=== PATIENT | male | born 1955 | race Caucasian/White ===

== ENCOUNTER 2021-03-08 09:54 | Day surgery (SDC) | payer MEDICARE ==
[~2021-03-08] VITALS: Ht 165.1 cm; Wt 81.8 kg
[2021-03-08 10:12] VITALS: BP 165/83
[2021-03-08] MEDS ORDERED: ATEN-169 PO (10:38)
[2021-03-08] MEDS ORDERED: FURO-149 PO (10:39)
[2021-03-08] MEDS ORDERED: LOSA100T57 PO (10:39)
[2021-03-08] MEDS ORDERED: POTA20PA40 PO (10:40)
[2021-03-08] MEDS ORDERED: BUDE10.2 INH (10:41)
[2021-03-08] MEDS ORDERED: ALBU8HFA PO (10:41)
[2021-03-08] MEDS ORDERED: fentaNYL/PF 50MCG/1 ML 2ML syringe ONE (10:48)
[2021-03-08] MEDS ORDERED: MIDAZolam 1 MG/ML 5ML VIAL ONE (10:48)
[2021-03-08 11:25] VITALS: BP 123/60
[2021-03-08 11:34] VITALS: BP 111/65
[2021-03-08 11:44] VITALS: BP 118/76
[2021-03-08 11:54] VITALS: BP 118/63
== END 2021-03-08 12:00 | disposition home or self-care (01) ==
LOC: GI LAB 09:54
PROVIDERS: ATTEND Internal Medicine Gastroenterology
DX: Z12.11 Encounter for screening for malignant neoplasm of colon (principal); D12.0 Benign neoplasm of cecum; D12.5 Benign neoplasm of sigmoid colon; D12.2 Benign neoplasm of ascending colon; K62.1 Rectal polyp; K57.30 Diverticulosis of large intestine without perforation or abscess without bleeding; K64.8 Other hemorrhoids; J44.9 Chronic obstructive pulmonary disease, unspecified; I10 Essential (primary) hypertension; Z91.09 Other allergy status, other than to drugs and biological substances; Z86.010 Personal history of colon polyps
CPT/HCPCS: 45380; 45385; 99153; C1773; G0500; J2250; J3010; J7040; 99152; A4620

== ENCOUNTER 2024-07-07 09:37 | Day surgery (SDC) | payer MEDICARE ==
[~2024-07-07] VITALS: Ht 162.6 cm; Wt 79.5 kg
[~2024-07-07 09:37] MED LIST: ALBU8HFA PO; AMLO5TAB PO; CYAN100097 PO; DULO60CA65 PO; ERGO400C PO; FLO0.4C PO; FURO-149 PO; LOSA-416 PO; LOSA100T58 PO; MONT-47 PO; MULT-1085 PO; POTA20PA40 PO; TIOT18CA3 INH
[2024-07-07 10:44] VITALS: BP 136/78; PULSE 76; RESP 17
[2024-07-07] MEDS ORDERED: fentaNYL/PF 50MCG/1 ML 2ML syringe ONE (10:59)
[2024-07-07] MEDS ORDERED: propofol inj 20 ML IV ONE (10:59)
[2024-07-07] MEDS ORDERED: midazolam 1 mg/ML 2ml injection ONE (10:59)
[2024-07-07 11:26] VITALS: BP 131/72; PULSE 76; RESP 16; O2SAT 98
[2024-07-07 11:36] VITALS: BP 122/67; PULSE 76; RESP 18; O2SAT 98
[2024-07-07 11:46] VITALS: BP 134/80; PULSE 80; RESP 16; O2SAT 98
[2024-07-07 11:56] VITALS: BP 136/75; PULSE 70; RESP 16; O2SAT 96
== END 2024-07-07 12:10 | disposition home or self-care (01) ==
LOC: GI LAB 09:37
PROVIDERS: ATTEND Internal Medicine Gastroenterology
DX: Z12.11 Encounter for screening for malignant neoplasm of colon (principal); D12.0 Benign neoplasm of cecum; D12.2 Benign neoplasm of ascending colon; D12.5 Benign neoplasm of sigmoid colon; K57.30 Diverticulosis of large intestine without perforation or abscess without bleeding; K64.8 Other hemorrhoids; I10 Essential (primary) hypertension; J44.9 Chronic obstructive pulmonary disease, unspecified; E66.9 Obesity, unspecified; G47.33 Obstructive sleep apnea (adult) (pediatric); Z86.0100 Personal history of colon polyps, unspecified; Z86.73 Personal history of transient ischemic attack (TIA), and cerebral infarction without residual deficits; Z87.891 Personal history of nicotine dependence; Z98.890 Other specified postprocedural states; Z68.30 Body mass index [BMI] 30.0-30.9, adult; Z88.8 Allergy status to other drugs, medicaments and biological substances
CPT/HCPCS: 45380; 45385; A4620; C1889; J2250; J2704; J3010; J7030; Z7512